=== PATIENT | male | born 1945 | race Caucasian/White ===

== ENCOUNTER → 2021-01-17 | Outpatient (CLI) | payer MEDICARE | LOC: HEART CORB 13:20 | DX: I10 Essential (primary) hypertension (principal); I49.3 Ventricular premature depolarization; R06.00 Dyspnea, unspecified; I08.3 Combined rheumatic disorders of mitral, aortic and tricuspid valves; R93.1 Abnormal findings on diagnostic imaging of heart and coronary circulation | CPT/HCPCS: 93306 ==

== ENCOUNTER → 2021-02-16 | Outpatient (CLI) | payer MEDICARE | LOC: HEART CORB 10:22 | DX: I49.3 Ventricular premature depolarization (principal); I11.9 Hypertensive heart disease without heart failure; I47.2 Ventricular tachycardia; R93.1 Abnormal findings on diagnostic imaging of heart and coronary circulation | CPT/HCPCS: J2785 ==